=== PATIENT | female | born 1975 | race Caucasian/White ===

== ENCOUNTER 2022-11-22 06:55 | Inpatient (IN) | payer OTHER ==
[~2022-11-22] VITALS: Ht 162.6 cm; Wt 117.0 kg
[~2022-11-22 06:55] MED LIST: ASPIRIN81 MG PO; ATORVASTATIN CA20 MG PO; FLONASE ALLERG9.9 ML INH; LOSARTAN POTAS100 MG PO; METOPROLOL SUCC50 MG PO; MONTELUKAST SOD10 MG PO; OMEPRAZOLE40 MG PO; SERTRALINE HCL50 MG PO; VITAMIN E45 MG PO
[2022-11-22] MEDS ORDERED: CEFAZOLIN SODIUM 2 GM ONE (08:30)
[2022-11-22] MEDS ORDERED: SODIUM CHLORIDE 0.9% 250ML 0 ML ONE (08:33)
[2022-11-22] MEDS ORDERED: PHENYLEPHRINE HCL 1% 10 MG/ML VIAL ONE (08:33)
[2022-11-22 08:49] LABS: BASOPHILS # (AUTO) 0.1 (0.0-0.1); BASOPHILS % 0.9 % (0.0-1.0); EOSINOPHILS # (AUTO) 0.4 (0.0-0.4); EOSINOPHILS % 6.6 % (0.0-6.0); HEMATOCRIT 39.6 % (34.2-44.1); HEMOGLOBIN 11.2 g/dL (12.0-16.0); LYMPHOCYTES # (AUTO) 1.8 (1.0-3.2); LYMPHOCYTES % 32.5 % (18.0-39.1); MEAN CORPUSCULAR HEMOGLOBIN 25.3 pg (28-32); MEAN CORPUSCULAR HGB CONC 28.3 g/dL (31-35); MEAN CORPUSCULAR VOLUME 89.6 fL (81-99); MONOCYTES # (AUTO) 0.5 (0.2-0.8); MONOCYTES % 8.2 % (4.4-11.3); NEUTROPHILS # (AUTO) 2.8 (2.1-6.9); NEUTROPHILS % 51.4 % (38.7-80.0); PLATELET COUNT 197 x10e3/uL (140-360); RED BLOOD COUNT 4.42 x10e6/uL (3.6-5.1); RED CELL DISTRIBUTION WIDTH 15.4 % (11.7-14.4)
[2022-11-22] MEDS ORDERED: BUPIVACAINE HCL 0.25% 10ML MPF VIAL INJ ONE (08:57)
[2022-11-22] MEDS ORDERED: FIBRIN FROZEN 2 ML SPRAY.GEL TOP ONE (09:00)
[2022-11-22] MEDS: LACTATED RINGER'S 1,000 ML IV SCH ×2 (09:45→17:48)
[2022-11-22] MEDS ORDERED: ONDANSETRON HCL INJ 2MG/ML 2ML 2 MG/ML VIAL IV PRN (09:45)
[2022-11-22] MEDS ORDERED: FENTANYL CITRATE/PF 100MCG/2 ML INJ ONE ×3 (12:05→15:09)
[2022-11-22] MEDS ORDERED: MIDAZOLAM HCL 2 MG/2 ML VIAL ONE ×2 (12:05→15:09)
[2022-11-22 12:50] VITALS: BP 156/92
[2022-11-22 13:00] VITALS: BP 149/93
[2022-11-22] MEDS ORDERED: GLYCOPYRROLATE INJ 0.2 MG/ML VIAL ONE (13:12)
[2022-11-22] MEDS ORDERED: DEXAMETHASONE SOD PHOS INJ 4 MG/ML SDV ONE (13:12)
[2022-11-22] MEDS ORDERED: SEVOFLURANE INHAL SOLN 250 ML PEN BTL ONE (13:12)
[2022-11-22] MEDS ORDERED: ONDANSETRON HCL INJ 2MG/ML 2ML 2 MG/ML VIAL ONE (13:12)
[2022-11-22] MEDS ORDERED: NEOSTIGMINE 1 MG/ML 10ML VIAL ONE (13:12)
[2022-11-22] MEDS ORDERED: ROCURONIUM BROMIDE 10 MG/ML 5ML VIAL IV ONE (13:12)
[2022-11-22] MEDS ORDERED: PROPOFOL IV EMULSION 10 MG/ML 20 ML VIAL ONE (13:12)
[2022-11-22] MEDS ORDERED: LIDOCAINE HCL 2% LOCAL INJ 5 ML SDV VIAL INJ ONE (13:12)
[2022-11-22] MEDS ORDERED: SCOPOLAMINE 1 MG PATCH TOP SCH (14:00)
[2022-11-22 16:17] VITALS: BP 156/92
[2022-11-22] MEDS ORDERED: ACETAMINOPHEN 325 MG TAB PO PRN (17:45)
[2022-11-22] MEDS: Morphine 2mg Syringe 2 MG/ML SYR IV PRN (18:00)
[2022-11-22 21:00] VITALS: BP 154/97
[2022-11-22] MEDS ORDERED: ENOXAPARIN SOD INJ 40 MG/0.4 ML SYR SC SCH (21:00)
[2022-11-22] MEDS ORDERED: ATORVASTATIN 20 MG TAB PO SCH (22:30)
[2022-11-22] MEDS ORDERED: MONTELUKAST SODIUM 10 MG TAB PO SCH (22:30)
[2022-11-22] MEDS ORDERED: SERTRALINE HCL 50 MG TAB PO SCH (22:30)
[2022-11-22] MEDS ORDERED: METOPROLOL SUCCINATE 50 MG TAB XL PO SCH (22:45)
[2022-11-22] MEDS: HYDROCODONE/APAP 7.5MG-325MG 1 EA TAB PO PRN (23:03)
[2022-11-23] MEDS: LACTATED RINGER'S 1,000 ML IV SCH (02:04)
[2022-11-23 04:00] VITALS: BP 154/97
[2022-11-23 05:46] LABS: BASOPHILS % 0.1 % (0.0-1.0); EOSINOPHILS % 0.2 % (0.0-6.0); HEMATOCRIT 33.9 % (34.2-44.1); HEMOGLOBIN 9.9 g/dL (12.0-16.0); LYMPHOCYTES # (AUTO) 1.6 (1.0-3.2); LYMPHOCYTES % 18.5 % (18.0-39.1); MEAN CORPUSCULAR HEMOGLOBIN 25.3 pg (28-32); MEAN CORPUSCULAR HGB CONC 29.2 g/dL (31-35); MEAN CORPUSCULAR VOLUME 86.7 fL (81-99); MONOCYTES # (AUTO) 0.6 (0.2-0.8); MONOCYTES % 7.2 % (4.4-11.3); NEUTROPHILS # (AUTO) 6.4 (2.1-6.9); NEUTROPHILS % 73.5 % (38.7-80.0); PLATELET COUNT 244 x10e3/uL (140-360); RED BLOOD COUNT 3.91 x10e6/uL (3.6-5.1); RED CELL DISTRIBUTION WIDTH 15.2 % (11.7-14.4)
[2022-11-23 06:24] LABS: ALBUMIN 3.4 g/dL (3.5-5.0); ALBUMIN/GLOBULIN RATIO 1.1 (0.8-2.0); ANION GAP 15.1 mmol/L (8-16); CALCIUM 8.4 mg/dL (8.4-10.2); CREATININE, SERUM 0.73 mg/dL (0.57-1.11); MAGNESIUM 1.7 MG/DL (1.3-2.1); PHOSPHORUS 3.1 MG/DL (2.3-4.7); POTASSIUM 3.1 mmol/L (3.5-5.1)
[2022-11-23 07:48] VITALS: BP 154/86
[2022-11-23] MEDS ORDERED: POTASSIUM CHLORIDE 20 MEQ TAB CR PO ONE ×2 (08:07→10:15)
[2022-11-23] MEDS: HYDROCODONE/APAP 7.5MG-325MG 1 EA TAB PO PRN (08:27)
[2022-11-23 08:33] VITALS: BP 154/56
[2022-11-23] MEDS ORDERED: PANTOPRAZOLE SOD 40 MG TABEC PO SCH (09:00)
[2022-11-23] MEDS ORDERED: ASPIRIN 81 MG ENTERIC COATED PO SCH (09:00)
[2022-11-23] MEDS ORDERED: LOSARTAN POTASSIUM 100 MG TAB PO SCH (09:00)
[2022-11-23] MEDS: Morphine 2mg Syringe 2 MG/ML SYR IV PRN (09:57)
[2022-11-23 11:49] VITALS: BP 148/96
[2022-11-23] MEDS ORDERED: ATORVASTATIN 20 MG TAB PO SCH (21:00)
[2022-11-23] MEDS ORDERED: SERTRALINE HCL 50 MG TAB PO SCH (21:00)
[2022-11-23] MEDS ORDERED: METOPROLOL SUCCINATE 50 MG TAB XL PO SCH ×2 (21:00)
[2022-11-23] MEDS ORDERED: MONTELUKAST SODIUM 10 MG TAB PO SCH (21:00)
== END 2022-11-23 12:24 | disposition home or self-care (01) | DRG 621 ==
LOC: OR 06:55 → PACU V 09:40 → MED/SURG2 12:50
PROVIDERS: ADMIT Internal Medicine; ATTEND Internal Medicine
PROC: 0WQF4ZZ Repair Abdominal Wall, Percutaneous Endoscopic Approach (ICD-10-PCS; 2022-11-22)
PROC: 0D164ZA Bypass Stomach to Jejunum, Percutaneous Endoscopic Approach (ICD-10-PCS; principal; 2022-11-22 09:27)
DX: E66.01 Morbid (severe) obesity due to excess calories (principal); Z68.41 Body mass index [BMI] 40.0-44.9, adult; K43.9 Ventral hernia without obstruction or gangrene; I11.9 Hypertensive heart disease without heart failure; G47.33 Obstructive sleep apnea (adult) (pediatric); E78.2 Mixed hyperlipidemia; K21.9 Gastro-esophageal reflux disease without esophagitis; Z20.822 Contact with and (suspected) exposure to COVID-19
CPT/HCPCS: 0223U; 36415; 80053; 81025; 83735; 84100; 85025; 94799; C1713; J1100; J2001; J2250; J2270; J2370; J2405; J2710; J3010; J7050; J7121